=== PATIENT | female | born 1975 | race Caucasian/White ===

== ENCOUNTER 2024-08-19 12:47 | Outpatient (AMB) | payer MEDICARE, MEDICAID, SELFPAY ==
--- OUTSIDE RECORDS SUMMARY | 2024-08-19 12:52 | XMS_ITS | Clinical Summary ---
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 study. Resulting Agency Comment [id number] Procedure Note Benedicto Massey MD - 08/01/2024 MRI LUMBAR SPINE WITHOUT CONTRAST TECHNIQUE: MR images of the lumbar spine were acquired without intravenouscontrast. CLINICAL INFORMATION: Age: 48 years, Gender: Female chronic lumbar back pain, followed by Physiatry at [facility] every 6 months, no significant improvement, now failing withablations. M43.17 - I10 - Spondylolisthesis, lumbosacral region COMPARISON: 04/12/2023 FINDINGS: DISC LEVEL NUMBERING: For the purposes of this report, the Inferior mostfully formed disc space is designated L5-S1. CONUS/SPINAL CORD: Conus tip position normal. Conus and visualized distalspinal cord signal intensity and contour are normal. BONES: 16 mm grade 2 L5-S1 anterolisthesis similar, related to bilateralchronic L5 spondylolysis and marked disc space narrowing. Vertebral bodyheights are intact. Marrow signal is unremarkable. SOFT TISSUES: Unremarkable. At T12-L1, moderate right central disc extrusion with both superior andinferior migration indents the thecal sac with mild spinal canal stenosis,without significant neural foraminal stenosis. At L1-L2, no significant spinal canal or neural foraminal stenosis. At L2-L3, minimal disc bulge without significant spinal canal or neuralforaminal stenosis. At L3-L4, disc bulge and mild facet arthropathy result in mild bilateralneural foraminal stenosis, without significant spinal canal stenosis. At L4-L5, disc bulge and mild facet arthropathy result in mild bilateralneural foraminal stenosis, without significant spinal canal stenosis At L5-S1, grade 2 anterolisthesis, marked disc space narrowing, discogenicdegenerative endplate change, chronic bilateral L5 spondylolysis and facetarthrosis result in severe neural foraminal stenosis, left greater thanright, without significant spinal canal stenosis The above findings are similar to the prior study. IMPRESSION: 1. Lumbar spondylosis similar to the prior study most notable at L5-S1,where 16 mm L5-S1 anterolisthesis related to bilateral chronic [id number] and marked disc space narrowing contribute toward severeneural foraminal stenosis, without significant spinal canal stenosis 2. At T12-L1, moderate right central disc extrusion indents the thecalsac with mild spinal canal stenosis, without significant neural foraminalstenosis. This is also stable. 3. Lumbar spinal canal stenosis at most mild in degree. If this radiology report contains a blank impression section, it is anincomplete radiology report. Please contact the interpreting radiologistor applicable radiology division as soon as possible to obtain thecompleted interpretation. Workstation ID: [id number] us Alyse Galeas NP IM MRI PROCEDURES Final Resu lt * [facility] Bilateral Diagnostic Digital Mammogram With Onur (11/26/2023 11:10 AM EDT) Anatomical Region Laterality Modality Breast Bilateral Mammography Narrative 11/26/2023 12:10 PM EDT INDICATIONS Right breast probably benign mass. 12 months follow-up. ??Patient missed 6 months follow-up. TECHNIQUE [facility] Bilateral Diagnostic Digital Mammogram With Onur US Breast Limited Right. R2 CAD were used in the interpretation of this study. COMPARISON Priors dating back to 2021. FINDINGS The breasts are heterogeneously dense, which may obscure small masses. Left [facility] Bilateral Diagnostic Digital Mammogram With Onur There is no evidence of suspicious masses, calcifications, or other abnormal findings in the left breast. ??2 ribbon micro markers in the left breast at the site of prior benign biopsies. Right [facility] Bilateral Diagnostic Digital Mammogram With Onur The oval upper outer quadrant posterior depth focal asymmetry with suggestion of a equal density mass has not significantly changed since prior mammogram of 10/16/2022. ??Circumscribed oval equal density mass in the retroareolar breast at posterior depth, increased conspicuity since prior mammogram. ??Stable inner central right breast mass at posterior depth with postbiopsy marker clip (biopsy yielding fibroadenoma). ??There is no evidence of interval new suspicious calcifications, or other abnormal findings in the right breast. US Breast Limited Right Targeted ultrasound of right breast at 11:00, 6 cm from the nipple redemonstrates oval, parallel oriented, iso-- hypoechoic mass without internal vascularity, now measuring 9 x 6 x 9 mm, previously 9 x 6 x 8 mm on prior ultrasound of 10/16/2022. ??There is no significant interval exchange trouble shooter 1 year. Targeted ultrasound of right breast at 6:00 retroareolar region demonstrates 5 x 3 x 4 mm oval, parallel oriented, avascular hypoechoic mass, likely minimally complicated cyst concordant with mammographically seen retroareolar posterior depth mass. IMPRESSION 1 year stability of right breast probably benign mass at 11:00. Additional right breast probably benign mass at 6:00 retroareolar region. ??A follow-up mammogram and ultrasound in 1 year is recommended to ensure stability. No mammographic evidence of malignancy in left breast. BI-RADS?? ATLAS category (left): 2 - Benign BI-RADS?? ATLAS category (right): 3 - Probably Benign MANAGEMENT Routine Screening Mammogram in 1 Year is recommended for left Diagnostic Mammogram in 1 Yr is recommended for right. ?? The patient was entered into a reminder system with a target date for their next breast imaging exam. If this radiology report contains a blank impression section, it is an incomplete radiology report. ??Please contact the interpreting radiologist or applicable radiology division as soon as possible to obtain the completed interpretation. us Ollie Cook MD IMG BI PROCEDURES Final Resu lt * [facility] Colonoscopy (10/11/2022 10:02 AM EDT) us Onbase Scan [facility] Final Resu lt from Last 3 Months or Most Recently Relevant to Health Maintenance Insurance MEDICARE [facility] Advance Directives Documents on File Type Date Recorded Patient Pc Analyst Expl anation Health Care Proxy 02/02/2021 Health Care Proxy 02/02/2021 Health Care Proxy 02/02/2021 Health Care Proxy 02/02/2021 Health Care Proxy 02/02/2021 Health Care Proxy 02/02/2021 Health Care Proxy 02/02/2021 Health Care Proxy 02/02/2021 Health Care Proxy 02/02/2021 Health Care Proxy 02/02/2021 Health Care Proxy 02/02/2021 Health Care Proxy 02/02/2021 Health Care Proxy 02/02/2021 Health Care Proxy 02/02/2021 Health Care Proxy 02/02/2021 Health Care Proxy 02/02/2021 Health Care Proxy 02/02/2021 Health Care Proxy 02/02/2021 Health Care Proxy 02/02/2021 Health Care Proxy 02/02/2021 Health Care Proxy 02/02/2021 Health Care Proxy 02/02/2021 Health Care Proxy 02/02/2021 Health Care Proxy 02/02/2021 Health Care Proxy 02/02/2021 Health Care Proxy 02/02/2021 Health Care Proxy 02/02/2021 Health Care Proxy 02/02/2021 Health Care Proxy 02/02/2021 Health Care Proxy 02/02/2021 Health Care Proxy 02/02/2021 Health Care Proxy 02/02/2021 Health Care Proxy 02/02/2021 Health Care Proxy 02/02/2021 Health Care Proxy 02/02/2021 Health Care Proxy 02/02/2021 Health Care Proxy 02/02/2021 Health Care Proxy 02/02/2021 Health Care Proxy 02/02/2021 Health Care Proxy 02/02/2021 Health Care Proxy 02/02/2021 Health Care Proxy 02/02/2021 Health Care Proxy 02/02/2021 Health Care Proxy 02/02/2021 Health Care Proxy 02/02/2021 Health Care Proxy 02/02/2021 Health Care Proxy 02/02/2021 Health Care Proxy 02/02/2021 Health Care Proxy 02/02/2021 Advance Directive 01/29/2021 4:42 PM Care Teams Supervisor Backfilling Relationship Specialty Start Date End Date Tristin Velasquez MD [address] [place] [id number] PCP - General Family Medicine 07/16/24
[2024-08-19 12:58] VITALS: BMI 32.1
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
== END 2024-08-19 14:02 | disposition home or self-care (01) ==
LOC: HO.HNS 12:48
PROVIDERS: PCP Family Medicine; Visit Provider Physician Assistant
DX: M25.551 Pain in right hip (principal); M43.16 Spondylolisthesis, lumbar region
CPT/HCPCS: 99204

== ENCOUNTER 2024-08-19 12:47 | Outpatient (REF) | payer MEDICARE, MEDICAID, SELFPAY ==
--- NOTE | ~2024-08-19 | XR_ITS ---
CLINICAL HISTORY: M25.551 - Pain in right hip 2 view right hip Comparison: None Findings: No acute fracture or dislocation No significant arthritic change. The soft tissues are unremarkable. There is an IUD in the mid pelvis. IMPRESSION: No acute findings. This document has been electronically signed by: Benedicto Gutierrez MD on 08/21/2024 10:10:56
--- NOTE | ~2024-08-19 | XR_ITS ---
CLINICAL HISTORY: M43.16 - Spondylolisthesis, lumbar region --- Additional Notes or Special Instructi ons: standing, a p lateral with flex ext views 4 views lumbar spine Comparison: None Findings: There is bilateral L5 spondylolysis. There is 1.8 cm anterior displacement of L5 on S1. With flexion, this is 1.6 cm. With the extension, this is 1.8 cm. No acute fractures or dislocation. Multiple level degenerative disc and facet change. IMPRESSION: Bilateral L5 spondylolysis with the anterior displacement of L5 on S1. This document has been electronically signed by: Benedicto Gutierrez MD on 08/21/2024 10:10:02
== END 2024-08-19 12:48 | disposition home or self-care (01) ==
LOC: HO.HOSX 12:47
PROVIDERS: PCP Family Medicine; Visit Provider Physician Assistant
DX: M43.16 Spondylolisthesis, lumbar region (principal); M25.551 Pain in right hip
CPT/HCPCS: 72110; 73502; 99202

== ENCOUNTER → 2024-08-19 13:41 | Outpatient (BNV) | payer MEDICARE, MEDICAID, SELFPAY | PROVIDERS: PCP Family Medicine; Visit Provider Specialist | DX: M47.817 Spondylosis without myelopathy or radiculopathy, lumbosacral region (principal); M25.551 Pain in right hip | CPT/HCPCS: 72110; 73502 ==